=== PATIENT | female | born 1950 | race Caucasian/White ===

== ENCOUNTER 2018-08-29 08:11 | Day surgery (SDC) | payer MEDICAID ==
[2018-08-28 09:59] LABS: BASOPHILS # (AUTO) 0.1 K/uL (0.00-0.22); BASOPHILS % (AUTO) 0.7 % (0.0-2.0); EOSINOPHILS # (AUTO) 0.2 K/uL (0-0.4); EOSINOPHILS % (AUTO) 1.2 % (0.0-4.0); HEMATOCRIT 40.2 % (36-48); HEMOGLOBIN 12.8 g/dL (12.0-16.0); LYMPHOCYTES # (AUTO) 2.2 K/uL (2.5-16.5); MEAN CORPUSCULAR HEMOGLOBIN 27 pg (27-31); MEAN CORPUSCULAR HGB CONC 32 g/dL (33-37); MONOCYTES % (AUTO) 7.3 % (1.7-9.3); NEUTROPHILS # (AUTO) 10.2 K/uL (1.8-7.7); NEUTROPHILS % (AUTO) 74.8 % (42.2-75.2); PLATELET COUNT (AUTO) 292 K/uL (140-450); RED BLOOD CELL COUNT(AUTO) 4.78 MIL/uL (4.20-5.40); RED CELL DISTRIBUTION WIDTH 14.5 % (11.6-13.7); WHITE BLOOD COUNT (AUTO) 13.6 K/uL (4.8-10.8)
[2018-08-28 10:24] LABS: ALBUMIN 3.7 g/dL (3.4-5.0); ANION GAP 10.5 (8-16); CARBON DIOXIDE 30.8 mmol/L (21-32); CREATININE 0.8 mg/dL (0.6-1.3); POTASSIUM 4.3 mmol/L (3.5-5.1); TOTAL BILIRUBIN 0.6 mg/dL (0.0-1.0)
[~2018-08-29] VITALS: Ht 149.9 cm; Wt 68.0 kg
[2018-08-29] MEDS ORDERED: DEXAMETHASONE 4 MG/ML VIAL ONE (10:20)
[2018-08-29] MEDS ORDERED: ROCURONIUM 50 MG/5 ML VIAL IV ONE (10:20)
[2018-08-29] MEDS ORDERED: PROPOFOL 200 MG/20 ML VIAL IV ONE (10:20)
[2018-08-29] MEDS ORDERED: SEVOFLURANE 250 ML BTL INH ONE (10:20)
[2018-08-29] MEDS ORDERED: SUCCINYLCHOLINE CHLORIDE 200 MG/10 ML VIAL IVP ONE (10:20)
[2018-08-29] MEDS ORDERED: KETOROLAC 30 MG/ML VIAL ONE (10:20)
[2018-08-29] MEDS ORDERED: BUPIVACAINE-MPF/EPI 0.25% 30 ML VIAL INJ ONE (10:26)
[2018-08-29] MEDS ORDERED: MEPERIDINE 50 MG/ML SYR ONE (10:31)
[2018-08-29] MEDS ORDERED: MIDAZOLAM 2 MG/2 ML VIAL ONE (10:31)
[2018-08-29] MEDS ORDERED: fentaNYL 0.05 MG/ML VIAL ONE (10:31)
[2018-08-29] MEDS ORDERED: LACTATED RINGERS 1,000 ML IV SCH (11:19)
[2018-08-29] MEDS ORDERED: MEPERIDINE 25 MG/ML SYR IVP PRN (11:20)
[2018-08-29] MEDS ORDERED: ONDANSETRON 4 MG/2 ML VIAL IVP PRN (11:20)
[2018-08-29] MEDS ORDERED: diphenhydrAMINE 50 MG/ML VIAL IVP PRN (11:20)
[2018-08-29] MEDS ORDERED: NACL 0.9% 1,000 ML IV SCH (11:48)
[2018-08-29] MEDS ORDERED: ONDANSETRON 4 MG/2 ML VIAL IV PRN (11:50)
[2018-08-29] MEDS ORDERED: HYDROmorphone 1 MG/ML AMP IVP PRN (11:50)
[2018-08-29] MEDS ORDERED: MORPHINE SULFATE 4 MG/ML SYR IVP PRN (11:50)
[2018-08-29] MEDS ORDERED: MORPHINE SULFATE 4 MG/ML SYR IV PRN (11:50)
[2018-08-29] MEDS ORDERED: HYDROcodone/APAP 5/325 MG 1 TAB TAB PO PRN (11:50)
[2018-08-29] MEDS: HYDROmorphone 1 MG/ML AMP IVP PRN ×2 (12:12→12:22)
[2018-08-29] MEDS ORDERED: HYDROmorphone PFS 2 MG/ML SYR ONE (12:21)
== END 2018-08-29 14:10 | disposition home or self-care (01) ==
LOC: MDS 08:11 → MMU 08:13 → MDS 14:10
PROVIDERS: ATTEND Surgery
DX: K80.10 Calculus of gallbladder with chronic cholecystitis without obstruction (principal); E66.9 Obesity, unspecified; Z68.30 Body mass index [BMI] 30.0-30.9, adult; Z90.710 Acquired absence of both cervix and uterus; Z98.890 Other specified postprocedural states; Z79.899 Other long term (current) drug therapy
CPT/HCPCS: 36415; 47562; 80053; 82374; 85025; 86886; 86900; 86901; C1887; J0330; J0690; J1100; J1170; J1885; J2175; J2250; J2704; J3010; J3490; J7030; J7060; J7120